=== PATIENT | male | born 1950 | race Caucasian/White ===

== ENCOUNTER 2019-01-25 11:27 | Observation (INO) | payer MEDICARE ==
[2019-01-25] MEDS ORDERED: Vancomycin 1GM/ Ns 250ML*** 1 GM/250 ML IVPB IV ONE (13:43)
[2019-01-25] MEDS ORDERED: Sodium Chloride 0.9% 1000 ML 1,000 ML IV SCH (13:45)
--- NOTE | 2019-01-25 13:51 | ERPHSYRPT ---
- History of Present Illness Time Seen by Provider: 01/25/19 13:10 Source: patient Exam Limitations: clinical condition Patient Subjective Stated Complaint: pt reports swelling, redness, drainage to the right great toe, states he has history of gout and infection off and on to this toe for approx 7 weeks.pt states toe will become infected he will get it to drain, clean it and dress it and it seems to heal. reports the infection keeps recurring. Triage Nursing Assessment: pt is aox3, pupils perrl, afebrile, resps easy and non labored, radial pulses strong and equal, cap refill < 3 seconds, pedal pulses strong equal bilat, pt skin pink warm dry. right great toe is red and swollen, open area noted to the lateral aspect, white drainage noted. pt denies pain. Physician History: PATIENT WITH A HISTORY OF GOUTY ARTHRITIS RIGHT GREAT TOE COMPLAINS OF REDNESS RIGHT GREAT TOE FOR 7 WEEKS WITH ONSET OF DRAINAGE X 2-3 DAYS. HAS ASSOCIATED CHILLS, DENIES FEVER, INJURY OR TRAUMA. Method of Injury: other (NONE) Occurred: other (WEEKS AGO) Quality: other (DENIES PAIN) Severity of Pain-Max: none Severity of Pain-Current: none Lower Extremities Pain: 1st toe: right Modifying Factors: Improves With: nothing Associated Symptoms: other (CHILLS) Allergies/Adverse Reactions: minocycline HCl [From Minocin] Allergy (Mild, Verified 01/25/19 13:22) nausea, confusion, dizzyness Skin Cleanser Combination No.4 [From Minocin] Allergy (Mild, Verified 01/25/19 13:22) nausea, confusion, dizzyness rifampin Allergy (Verified 01/25/19 13:22) nausea, dizzyness, confused Home Medications: Allopurinol 300 mg [Zyloprim 300 mg] 300 mg PO DAILY 05/04/13 [History] Alprazolam 1 mg [Xanax 1 mg] 1 mg PO HS PRN 05/04/13 [History] Aspirin EC 81 mg [Ecotrin 81 mg] 81 mg PO HS 05/04/13 [History] Lisinopril 10 mg [Zestril 10 MG] 40 mg PO BID 05/04/13 [History] Ascorbic Acid [Vitamin C] 3,000 mg PO DAILY 12/28/18 [History] Multivitamin W-Minerals/Lutein [Centrum Silver Tablet] 1 each PO DAILY 12/28/18 [History] [place]-3/Dha/Epa/Fish Oil [Fish Oil 1,000 mg Softgel] 1 each PO DAILY 12/28/18 [ History] Thiamine HCl [Vitamin B-1] 250 mg PO DAILY 12/28/18 [History] Hx Tetanus, Diphtheria Vaccination/Date Given: Yes Hx Influenza Vaccination/Date Given: No Hx Pneumococcal Vaccination/Date Given: No Immunizations Up to Date: Yes - Review of Systems Constitutional: No Fever, No Chills Eyes: No Symptoms Ears, Nose, & Throat: No Symptoms Respiratory: No Symptoms, No Cough, No Dyspnea Cardiac: No Chest Pain, No Edema, No Syncope Abdominal/Gastrointestinal: No Symptoms, No Abdominal Pain, No Nausea, No Vomiting, No Diarrhea Genitourinary Symptoms: No Dysuria Musculoskeletal: No Back Pain, No Neck Pain Skin: Cellulitis, Other (DRAINAGE RIGHT GREAT TOE), No Rash Neurological: No Dizziness, No Focal Weakness, No Sensory Changes Psychological: No Symptoms Endocrine: No Symptoms All Other Systems: Reviewed and Negative - Past Medical History Pertinent Past Medical History: Yes Neurological History: No Pertinent History ENT History: Cataracts Cardiac History: Hypertension Respiratory History: No Pertinent History Endocrine Medical History: No Pertinent History Musculoskeletal History: Arthritis, Fractures, Osteoarthritis GI Medical History: GERD History: No Pertinent History Psycho-Social History: Anxiety Male Reproductive Disorders: No Pertinent History Other Medical History: Hx of fractured ribs and right hand. Gout - Past Surgical History Past Surgical History: Yes Neuro Surgical History: No Pertinent History Cardiac: No Pertinent History Respiratory: No Pertinent History Gastrointestinal: No Pertinent History Genitourinary: Other Musculoskeletal: Orthopedic Surgery Male Surgical History: Vasectomy Other Surgical History: vasectomy, right knee arthroscopy, Right and left great toes. - Social History Smoking Status: Never smoker How long have you smoked: 10-15 year Exposure to second hand smoke: No Drug Use: none Patient Lives Alone: No - Nursing Vital Signs Nursing Vital Signs: Initial Vital Signs Temperature 99.0 F 01/25/19 13:04 Pulse Rate 85 01/25/19 13:04 Respiratory Rate 20 01/25/19 13:04 Blood Pressure 173/89 01/25/19 13:04 O2 Sat by Pulse Oximetry 96 01/25/19 13:04 Pain Scale Pain Intensity 0 - Physical Exam General Appearance: no apparent distress Neck Exam: non-tender, supple Cardiovascular/Respiratory Exam: chest non-tender, normal breath sounds, regular rate/rhythm, no respiratory distress Foot Exam: right foot: swelling (MARKED ERYTHEMA DORSUM RIGHT GREAT TOE, ULCERATION 1CM X 1CM RADIAL ASPECT WIT SEROSANGUINOUS DRAINAGE, NONTENDER, CONFLUENT ERYTHEMA METATARSAL PHALNAGEAL JOINT TO TIP OF TIP OF TOE OVER DORSUM) Neuro/Tendon Exam: normal sensation, normal motor functions Mental Status Exam: oriented x 3 SpO2: 96 - Radiology Exams Right Foot X-ray Interpretation: Discussed w/ radiologist (GREAT TOE IP JOINT PERIARTICULAR EROSIONS WITH OVERHANGING OSTEOPHYTES AND SOFT TISSUE SWELLLING FAVORING GOUT) Ordered Tests: Active Orders 24 hr Category Date Time Status Wound Care STAT Care 01/25/19 13:42 Active FOOT (MINIMUM 3 VIEWS) Stat Exams 01/25/19 13:43 Completed BLOOD CULTURE Stat Lab 01/25/19 14:10 Received BMP Stat Lab 01/25/19 14:10 Completed CBC W DIFF Stat Lab 01/25/19 14:10 Completed PT INR [PROTIME WITH INR] Stat Lab 01/25/19 14:10 Completed Uric Acid Stat Lab 01/25/19 14:10 Completed Medication Summary Generic Name Dose Route Start Last Admin Trade Name Freq PRN Reason Stop Dose Admin Sodium Chloride 1,000 mls @ 100 mls/hr 01/25/19 13:45 Sodium Chloride 0.9% 1000 Ml IV 02/24/19 13:44 .Q10H GREGORIO Discontinued Medications Generic Name Dose Route Start Last Admin Trade Name Freq PRN Reason Stop Dose Admin Vancomycin HCl 1 gm in 250 mls @ 167 mls/hr 01/25/19 13:43 Vancomycin 1gm/ Ns 250ml IV 01/25/19 15:12 STAT ONE Lab/Rad Data: Laboratory Result Diagrams 01/25/19 14:10 01/25/19 14:10 Laboratory Results 01/25/19 01/25/19 01/25/19 Range/Units 14:10 14:10 14:10 WBC (4.0-10.5) K/mm3 RBC (4.1-5.6) M/mm3 Hgb (12.5-18.0) gm/dl Hct (42-50) % MCV (78-100) fl MCH (26-32) pg MCHC (32-36) g/dl RDW (11.5-14.0) % Plt Count (150-450) K/mm3 MPV (6-9.5) fl Gran % (36.0-66.0) % Eos # (Auto) (0-0.5) Absolute Lymphs (auto) (1.0-4.6) Absolute Monos (auto) (0.0-1.3) Lymphocytes % (24.0-44.0) % Monocytes % (0.0-12.0) % Eosinophils % (0.00-5.0) % Basophils % (0.0-0.4) % Absolute Granulocytes (1.4-6.9) Basophils # (0-0.4) PT 14.3 H (8.83-12.87) SECONDS INR 1.23 (0.8-3.0) Sodium 140 (137-145) mmol/L Potassium 3.7 (3.5-5.1) mmol/L Chloride 103 (98-107) mmol/L Carbon Dioxide 28 (22-30) mmol/L Anion Gap 13.2 (5-15) MEQ/L BUN 14 (9-20) mg/dL Creatinine 0.99 (0.66-1.25) mg/dL Estimated GFR > 60.0 ML/MIN Glucose 96 (74-106) mg/dL Uric Acid 5.9 (3.5-7.2) mg/dL Calcium 9.6 (8.4-10.2) mg/dL Slides for Path Review 01/25/19 Range/Units 14:10 WBC 5.2 (4.0-10.5) K/mm3 RBC 4.00 L (4.1-5.6) M/mm3 Hgb 14.0 (12.5-18.0) gm/dl Hct 40.5 L (42-50) % MCV 101.3 H (78-100) fl MCH 35.0 H (26-32) pg MCHC 34.6 (32-36) g/dl RDW 13.2 (11.5-14.0) % Plt Count 168 (150-450) K/mm3 MPV 10.7 H (6-9.5) fl Gran % 75.9 H (36.0-66.0) % Eos # (Auto) 0.05 (0-0.5) Absolute Lymphs (auto) 0.52 L (1.0-4.6) Absolute Monos (auto) 0.66 (0.0-1.3) Lymphocytes % 10.0 L (24.0-44.0) % Monocytes % 12.7 H (0.0-12.0) % Eosinophils % 1.0 (0.00-5.0) % Basophils % 0.4 (0.0-0.4) % Absolute Granulocytes 3.96 (1.4-6.9) Basophils # 0.02 (0-0.4) PT (8.83-12.87) SECONDS INR (0.8-3.0) Sodium (137-145) mmol/L Potassium (3.5-5.1) mmol/L Chloride (98-107) mmol/L Carbon Dioxide (22-30) mmol/L Anion Gap (5-15) MEQ/L BUN (9-20) mg/dL Creatinine (0.66-1.25) mg/dL Estimated GFR ML/MIN Glucose (74-106) mg/dL Uric Acid (3.5-7.2) mg/dL Calcium (8.4-10.2) mg/dL Slides for Path Review YES - Progress Progress Note: 01/25/19 13:51 IV NORMAL SALINE 100ML /HR, AFTER 2 SETS OF BLOOD CULTURE X 2, VANCOMYCIN 1GM IVPB Discussed with Dr.: Quick (DISCUSSED WITH DR QUICK AT 1520 FOR OBSERVATION) - Departure Time of Disposition: 15:50 Departure Disposition: Observation Clinical Impression: CELLULITIS RIGHT GREAT TOE Condition: Stable Critical Care Time: No Referrals: DOCTOR,NO FAMILY [Primary Care Provider] -
--- NOTE | 2019-01-25 14:06 | XRAY ---
Indication: Great toe infection. Gout. Comparison: None 3 nonweightbearing views of the right foot demonstrates great toe IP joint periarticular erosions with overhanging osteophytes and soft tissue swelling favoring gout. Elsewhere mild 1st MTP degenerative changes, tiny posterior heel spur, tiny 5th metatarsal spur, and prominent navicular accessory ossicle.
[2019-01-25 14:24] LABS: BASOPHIL % 0.4 % (0.0-0.4); Basophil (Absolute #) 0.02 (0-0.4); Eosinophil (Absolute #) 0.05 (0-0.5); Granulocyte Absolute (ANC) 3.96 (1.4-6.9); Granulocytes % 75.9 % (36.0-66.0); Hematocrit 40.5 % (42-50); INR 1.23 (0.8-3.0); Lymphocyte (Absolute #) 0.52 (1.0-4.6); Mean Cell Volume 101.3 fl (78-100); Mean Corpuscular Hgb Concent. 34.6 g/dl (32-36); Mean Platelet Volume 10.7 fl (6-9.5); Monocyte (Absolute #) 0.66 (0.0-1.3); Monocytes % 12.7 % (0.0-12.0); PROTIME 14.3 SECONDS (8.83-12.87); Platelet Count 168 K/mm3 (150-450); Red Cell Distribution Width 13.2 % (11.5-14.0); White Blood Count 5.2 K/mm3 (4.0-10.5)
[2019-01-25 14:28] LABS: ANION GAP 13.2 MEQ/L (5-15); BLOOD UREA NITROGEN 14 mg/dL (9-20); CHLORIDE 103 mmol/L (98-107); Calcium 9.6 mg/dL (8.4-10.2); Carbon Dioxide 28 mmol/L (22-30); Creatinine 1 0.99 mg/dL (0.66-1.25); Glucose 96 mg/dL (74-106); Potassium 3.7 mmol/L (3.5-5.1); SODIUM 140 mmol/L (137-145)
[2019-01-25 15:27] LABS: Slide Review 1 YES
[2019-01-25] MEDS ORDERED: Sodium Chloride 0.9% 1000 ML 1,000 ML ONE (15:31)
[2019-01-25] MEDS ORDERED: Vancomycin 1GM/ Ns 250ML*** 250 ML IV ONE (15:32)
[2019-01-25] MEDS: Sodium Chloride 0.9% 1000 ML 1,000 ML IV SCH (15:47)
[2019-01-25] MEDS ORDERED: VANCOCIN 1 GM VIAL*** 1 GM in Sodium Chloride 0.9% 250 ML 250 ML IV SCH (16:43)
[2019-01-25] MEDS ORDERED: Zofran 4 MG/2 ML VIAL IV PRN (16:43)
[2019-01-25] MEDS ORDERED: NORCO 5/325 MG PO PRN (16:43)
[2019-01-25] MEDS ORDERED: XANAX 1 MG PO PRN (18:51)
[2019-01-25 19:34] LABS: INFLUENZA A POSITIVE (NEGATIVE); INFLUENZA B NEGATIVE (NEGATIVE); RESPIRATORY SYNCTIAL VIRUS NEGATIVE (Negative)
[2019-01-25] MEDS ORDERED: APRESOLINE 20 MG/ML INJ IV PRN (19:38)
[2019-01-25] MEDS: TYLENOL 325 MG PO PRN (19:51)
--- NOTE | 2019-01-25 20:17 | PCM.HP ---
History of Present Illness - Chief Complaint Chief Complaint: CELLULITIS History of Present Illness: Mr.LIGHTHIZER DUKE is a 68 year old male pt of Dr. Dudley (has seen Dr. Prudence Koroma and Kezia llanes), also a [facility], with PMHx Hep C (treated with sustained viral response), gout, HTN, and anxiety who was admitted through ER with cellulitis of the R great toe. He was c/o 2 months of R toe pain and increased swelling - has been seeing Dr. Nava for treatment. He also has hx issues wiht L toe, btoh he thinks due to gout. He was treated with IV antibiotics previously with improvement but worse over the past 2 mo. Pt also c/o cough which came on yesterday and temp to 100. He asked to be tested for influenza and in fact is positive for flu A. XR foot showed periarticular erosoins favoring gout. His WBC are 5.2. uric acid 5.9. - Review of Systems Constitutional: Fever Respiratory: Cough Musculoskeletal: Joint Redness, Joint Pain, Joint Swelling Psychological: No Anxiety, No Depression, No Suicidal Ideations All Other Systems: Reviewed and Negative Medications & Allergies Home Medications: Home Medication List Allopurinol 300 mg [Zyloprim 300 mg] 300 mg PO DAILY 05/04/13 [History Confirmed 01/25/19] Alprazolam 1 mg [Xanax 1 mg] 1 mg PO HS PRN 05/04/13 [History Confirmed ] Lisinopril 10 mg [Zestril 10 MG] 40 mg PO BID 05/04/13 [History Confirmed 01/25/19] Ascorbic Acid [Vitamin C] 3,000 mg PO DAILY 12/28/18 [History Confirmed 01/25/19 ] [place]-3/Dha/Epa/Fish Oil [Fish Oil 1,000 mg Softgel] 1 each PO DAILY 12/28/18 [ History Confirmed 01/25/19] Thiamine HCl [Vitamin B-1] 250 mg PO DAILY 12/28/18 [History Confirmed 01/25/19] Cranberry Conc/Ascorbic Acid [Cranberry 6,000 mg Softgel] 1 each PO DAILY [History Confirmed 01/25/19] Allergies/Adverse Reactions: Allergies Allergy/AdvReac Type Severity Reaction Status Date / Time minocycline HCl Allergy Mild nausea, Verified 01/25/19 13:22 [From Minocin] confusion, dizzyness Skin Cleanser Combination Allergy Mild nausea, Verified 01/25/19 13:22 No.4 confusion, [From Minocin] dizzyness rifampin Allergy nausea, Verified 01/25/19 13:22 dizzyness, confused - Past Medical History Past Medical History: Yes Neurological History: No Pertinent History ENT History: Cataracts Cardiac History: Hypertension Respiratory History: No Pertinent History Endocrine Medical History: No Pertinent History Musculoskelatal History: Arthritis, Fractures, Osteoarthritis GI Medical History: GERD History: No Pertinent History Pyscho-Social History: Anxiety Male Reproductive Disorders: No Pertinent History Comment: Hx of fractured ribs and right hand. Gout - Past Surgical History Past Surgical History: Yes Neuro Surgical History: No Pertinent History Cardiac History: No Pertinent History Respiratory Surgery: No Pertinent History GI Surgical History: No Pertinent History Genitourinary Surgical Hx: Other Musculskeletal Surgical Hx: Orthopedic Surgery Male Surgical History: Vasectomy Other Surgical History: vasectomy, right knee arthroscopy, Right and left great toes. - Social History Smoking Status: Former smoker How long have you smoked: 10-15 year Exposure to second hand smoke: No Alcohol: None Drug Use: none - Physical Exam Vital Signs: Vital Signs - 24 hr Temp Pulse Resp BP Pulse Ox 01/25/19 16:45 98.8 F 85 20 179/92 85 L 01/25/19 16:37 98.8 F 85 20 179/92 85 L 01/25/19 15:51 82 20 168/93 98 01/25/19 15:36 96 01/25/19 13:04 99.0 F 85 20 173/89 96 General Appearance: no apparent distress, alert Neurologic Exam: oriented x 3, cooperative Eye Exam: eyes nml inspection Ears, Nose, Throat Exam: moist mucous membranes Neck Exam: normal inspection, non-tender, No lymphadenopathy Respiratory Exam: normal breath sounds, lungs clear, wheezing (slight), No crackles/rales, No rhonchi Cardiovascular Exam: regular rate/rhythm, normal heart sounds, No murmur Gastrointestinal/Abdomen Exam: soft, normal bowel sounds, No tenderness, No distention, No mass, No guarding, No rebound Back Exam: normal inspection, No rash Extremity Exam: other (R great toe is enlarged, particularly in medial aspect, very firm. There is an ulcerated open wound on the anterior (dorsal) medial aspect, approx 1.5 cm.) Results - Labs Lab/Micro Results: Lab Results-Last 24 Hours 01/25/19 01/25/19 01/25/19 Range/Units 14:10 14:10 14:10 WBC 5.2 (4.0-10.5) K/mm3 RBC 4.00 L (4.1-5.6) M/mm3 Hgb 14.0 (12.5-18.0) gm/dl Hct 40.5 L (42-50) % MCV 101.3 H (78-100) fl MCH 35.0 H (26-32) pg MCHC 34.6 (32-36) g/dl RDW 13.2 (11.5-14.0) % Plt Count 168 (150-450) K/mm3 MPV 10.7 H (6-9.5) fl Gran % 75.9 H (36.0-66.0) % Eos # (Auto) 0.05 (0-0.5) Absolute Lymphs (auto) 0.52 L (1.0-4.6) Absolute Monos (auto) 0.66 (0.0-1.3) Lymphocytes % 10.0 L (24.0-44.0) % Monocytes % 12.7 H (0.0-12.0) % Eosinophils % 1.0 (0.00-5.0) % Basophils % 0.4 (0.0-0.4) % Absolute Granulocytes 3.96 (1.4-6.9) Basophils # 0.02 (0-0.4) PT 14.3 H (8.83-12.87) SECONDS INR 1.23 (0.8-3.0) Sodium 140 (137-145) mmol/L Potassium 3.7 (3.5-5.1) mmol/L Chloride 103 (98-107) mmol/L Carbon Dioxide 28 (22-30) mmol/L Anion Gap 13.2 (5-15) MEQ/L BUN 14 (9-20) mg/dL Creatinine 0.99 (0.66-1.25) mg/dL Estimated GFR > 60.0 ML/MIN Glucose 96 (74-106) mg/dL Uric Acid (3.5-7.2) mg/dL Calcium 9.6 (8.4-10.2) mg/dL Influenza Type A Ag (NEGATIVE) Influenza Type B Ag (NEGATIVE) RSV (PCR) (Negative) Slides for Path Review YES 01/25/19 01/25/19 Range/Units 14:10 18:30 WBC (4.0-10.5) K/mm3 RBC (4.1-5.6) M/mm3 Hgb (12.5-18.0) gm/dl Hct (42-50) % MCV (78-100) fl MCH (26-32) pg MCHC (32-36) g/dl RDW (11.5-14.0) % Plt Count (150-450) K/mm3 MPV (6-9.5) fl Gran % (36.0-66.0) % Eos # (Auto) (0-0.5) Absolute Lymphs (auto) (1.0-4.6) Absolute Monos (auto) (0.0-1.3) Lymphocytes % (24.0-44.0) % Monocytes % (0.0-12.0) % Eosinophils % (0.00-5.0) % Basophils % (0.0-0.4) % Absolute Granulocytes (1.4-6.9) Basophils # (0-0.4) PT (8.83-12.87) SECONDS INR (0.8-3.0) Sodium (137-145) mmol/L Potassium (3.5-5.1) mmol/L Chloride (98-107) mmol/L Carbon Dioxide (22-30) mmol/L Anion Gap (5-15) MEQ/L BUN (9-20) mg/dL Creatinine (0.66-1.25) mg/dL Estimated GFR ML/MIN Glucose (74-106) mg/dL Uric Acid 5.9 (3.5-7.2) mg/dL Calcium (8.4-10.2) mg/dL Influenza Type A Ag POSITIVE (NEGATIVE) Influenza Type B Ag NEGATIVE (NEGATIVE) RSV (PCR) NEGATIVE (Negative) Slides for Path Review - Radiology Impressions Radiology Exams & Impressions: Radiology Procedures Category Date Time Status FOOT (MINIMUM 3 VIEWS) Stat Exams 01/25/19 13:43 Completed Assessment/Plan (1) Cellulitis Current Visit: Yes Status: Acute Qualifiers: Site of cellulitis: extremity Site of cellulitis of extremity: toe Laterality: right Qualified Code(s): L03.031 - Cellulitis of right toe Assessment & Plan: on IV vancomycin Code(s): L03.90 - CELLULITIS, UNSPECIFIED (2) Influenza A Current Visit: Yes Status: Acute Assessment & Plan: started tamiflu. Code(s): J10.1 - FLU DUE TO OTH IDENT INFLUENZA VIRUS W OTH RESP MANIFEST (3) Gout Current Visit: Yes Status: Chronic Qualifiers: Gout site: unspecified site Gout etiology: unspecified cause Chronicity: chronic Presence of tophus: with tophus Qualified Code(s): M1A.9XX1 - Chronic gout, unspecified, with tophus (tophi) Assessment & Plan: uric acid nl currently. Code(s): M10.9 - GOUT, UNSPECIFIED
[2019-01-25] MEDS ORDERED: PROVENTIL 2.5 MG/3 ML NEB IH PRN (20:21)
[2019-01-25] MEDS ORDERED: Zestril 10 MG PO SCH (22:00)
[2019-01-25] MEDS: VANCOCIN 1 GM VIAL*** 1 GM in Sodium Chloride 0.9% 250 ML 250 ML IV SCH (22:33)
[2019-01-25] MEDS: Tamiflu 75MG Capsule PO SCH (22:34)
[2019-01-25] MEDS: Zestril 20 MG PO SCH (22:34)
--- NOTE | 2019-01-26 08:46 | PCM.NOTE ---
Date and Time: 01/26/19 0844 Subjective Assessment: Pt is feeling better, toe feels better. Did have temp to 100.3 early this morning. Cough is better. - Review of Systems Constitutional: Fever Respiratory: Cough Objective Exam General Appearance: no apparent distress, alert Neurologic Exam: oriented x 3, cooperative Skin Exam: other (R great toe decreased erythema (mild), open defect no exudate , appears slightly smaller. induration remains.) Ears, Nose, Throat Exam: moist mucous membranes Neck Exam: normal inspection Respiratory Exam: normal breath sounds, wheezing (sl exp wheeze, scattered), No crackles/rales, No rhonchi Cardiovascular Exam: regular rate/rhythm, normal heart sounds, No murmur OBJECTIVE DATA Vital Signs: Vital Signs - 24 hr Temp Pulse Resp BP Pulse Ox 01/26/19 07:59 96 01/26/19 07:00 98.2 F 69 18 139/71 94 L 01/26/19 03:34 100.3 F 72 18 142/84 94 L 01/26/19 00:00 98.2 F 73 20 143/71 95 01/25/19 21:12 84 18 95 01/25/19 20:00 100 F 77 20 161/87 93 L 01/25/19 16:45 98.8 F 85 20 179/92 85 L 01/25/19 16:37 98.8 F 85 20 179/92 85 L 01/25/19 15:51 82 20 168/93 98 01/25/19 15:36 96 01/25/19 13:04 99.0 F 85 20 173/89 96 Pain Assessment - Last Documented Pain Intensity 0 Pain Scale Used [facility] Intake and Output: Intake & Output 01/23/19 01/24/19 01/25/19 01/26/19 11:59 11:59 11:59 11:59 Intake Total 1696 Balance 1696 Weight 72.575 kg Lab Results: Lab Results-Last 24 Hours 01/25/19 01/25/19 01/25/19 Range/Units 14:10 14:10 14:10 WBC 5.2 (4.0-10.5) K/mm3 RBC 4.00 L (4.1-5.6) M/mm3 Hgb 14.0 (12.5-18.0) gm/dl Hct 40.5 L (42-50) % MCV 101.3 H (78-100) fl MCH 35.0 H (26-32) pg MCHC 34.6 (32-36) g/dl RDW 13.2 (11.5-14.0) % Plt Count 168 (150-450) K/mm3 MPV 10.7 H (6-9.5) fl Gran % 75.9 H (36.0-66.0) % Eos # (Auto) 0.05 (0-0.5) Absolute Lymphs (auto) 0.52 L (1.0-4.6) Absolute Monos (auto) 0.66 (0.0-1.3) Lymphocytes % 10.0 L (24.0-44.0) % Monocytes % 12.7 H (0.0-12.0) % Eosinophils % 1.0 (0.00-5.0) % Basophils % 0.4 (0.0-0.4) % Absolute Granulocytes 3.96 (1.4-6.9) Basophils # 0.02 (0-0.4) PT 14.3 H (8.83-12.87) SECONDS INR 1.23 (0.8-3.0) Sodium 140 (137-145) mmol/L Potassium 3.7 (3.5-5.1) mmol/L Chloride 103 (98-107) mmol/L Carbon Dioxide 28 (22-30) mmol/L Anion Gap 13.2 (5-15) MEQ/L BUN 14 (9-20) mg/dL Creatinine 0.99 (0.66-1.25) mg/dL Estimated GFR > 60.0 ML/MIN Glucose 96 (74-106) mg/dL Uric Acid (3.5-7.2) mg/dL Calcium 9.6 (8.4-10.2) mg/dL Influenza Type A Ag (NEGATIVE) Influenza Type B Ag (NEGATIVE) RSV (PCR) (Negative) Slides for Path Review YES 01/25/19 01/25/19 Range/Units 14:10 18:30 WBC (4.0-10.5) K/mm3 RBC (4.1-5.6) M/mm3 Hgb (12.5-18.0) gm/dl Hct (42-50) % MCV (78-100) fl MCH (26-32) pg MCHC (32-36) g/dl RDW (11.5-14.0) % Plt Count (150-450) K/mm3 MPV (6-9.5) fl Gran % (36.0-66.0) % Eos # (Auto) (0-0.5) Absolute Lymphs (auto) (1.0-4.6) Absolute Monos (auto) (0.0-1.3) Lymphocytes % (24.0-44.0) % Monocytes % (0.0-12.0) % Eosinophils % (0.00-5.0) % Basophils % (0.0-0.4) % Absolute Granulocytes (1.4-6.9) Basophils # (0-0.4) PT (8.83-12.87) SECONDS INR (0.8-3.0) Sodium (137-145) mmol/L Potassium (3.5-5.1) mmol/L Chloride (98-107) mmol/L Carbon Dioxide (22-30) mmol/L Anion Gap (5-15) MEQ/L BUN (9-20) mg/dL Creatinine (0.66-1.25) mg/dL Estimated GFR ML/MIN Glucose (74-106) mg/dL Uric Acid 5.9 (3.5-7.2) mg/dL Calcium (8.4-10.2) mg/dL Influenza Type A Ag POSITIVE (NEGATIVE) Influenza Type B Ag NEGATIVE (NEGATIVE) RSV (PCR) NEGATIVE (Negative) Slides for Path Review Radiology Exams: Radiology Procedures Category Date Time Status FOOT (MINIMUM 3 VIEWS) Stat Exams 01/25/19 13:43 Completed Assessment/Plan (1) Cellulitis Current Visit: Yes Status: Acute Qualifiers: Site of cellulitis: extremity Site of cellulitis of extremity: toe Laterality: right Qualified Code(s): L03.031 - Cellulitis of right toe Assessment & Plan: appears better on IV vancomycin. Did have elevated temp, however with flu A this confounds the finding. Since the toe is feeling and looking better, will stay with IV vancomycin for now. Code(s): L03.90 - CELLULITIS, UNSPECIFIED (2) Influenza A Current Visit: Yes Status: Acute Assessment & Plan: on tamiflu Code(s): J10.1 - FLU DUE TO OTH IDENT INFLUENZA VIRUS W OTH RESP MANIFEST (3) Gout Current Visit: Yes Status: Chronic Qualifiers: Gout site: unspecified site Gout etiology: unspecified cause Chronicity: chronic Presence of tophus: with tophus Qualified Code(s): M1A.9XX1 - Chronic gout, unspecified, with tophus (tophi) Code(s): M10.9 - GOUT, UNSPECIFIED
[2019-01-26] MEDS ORDERED: Zestril 10 MG PO SCH (10:00)
[2019-01-26] MEDS: ECOTRIN 81 MG PO SCH (11:26)
[2019-01-26] MEDS: TYLENOL 325 MG PO PRN (11:28)
[2019-01-26] MEDS: Tamiflu 75MG Capsule PO SCH ×2 (11:29→22:31)
[2019-01-26] MEDS: ZYLOPRIM 300 MG PO SCH (11:29)
[2019-01-26] MEDS: ENOXAPARIN SODIUM SQ SCH (11:29)
[2019-01-26] MEDS: Zestril 20 MG PO SCH ×2 (11:29→22:31)
[2019-01-26] MEDS: VANCOCIN 1 GM VIAL*** 1 GM in Sodium Chloride 0.9% 250 ML 250 ML IV SCH ×2 (11:31→22:26)
[2019-01-26] MEDS: Sodium Chloride 0.9% 1000 ML 1,000 ML IV SCH (13:46)
[2019-01-27 05:53] LABS: Basophil (Absolute #) 0 (0-0.4); Eosinophil (Absolute #) 0.06 (0-0.5); Granulocyte Absolute (ANC) 1.34 (1.4-6.9); Granulocytes % 44.8 % (36.0-66.0); Hematocrit 38.5 % (42-50); Hemoglobin 13.1 gm/dl (12.5-18.0); Lymphocyte (Absolute #) 1.05 (1.0-4.6); Lymphocytes % 35.1 % (24.0-44.0); Mean Cell Volume 100.3 fl (78-100); Mean Corpuscular Hemoglobin 34.1 pg (26-32); Mean Platelet Volume 10.7 fl (6-9.5); Monocyte (Absolute #) 0.54 (0.0-1.3); Monocytes % 18.1 % (0.0-12.0); Platelet Count 133 K/mm3 (150-450); Red Blood Count 3.84 M/mm3 (4.1-5.6); Red Cell Distribution Width 13.2 % (11.5-14.0)
[2019-01-27 06:04] LABS: ANION GAP 10.7 MEQ/L (5-15); BLOOD UREA NITROGEN 14 mg/dL (9-20); CHLORIDE 103 mmol/L (98-107); Carbon Dioxide 27 mmol/L (22-30); Creatinine 1 0.88 mg/dL (0.66-1.25); Glucose 88 mg/dL (74-106); Potassium 3.7 mmol/L (3.5-5.1); SODIUM 136 mmol/L (137-145)
--- NOTE | 2019-01-27 08:47 | PCM.NOTE ---
Date and Time: 01/27/19 0844 Subjective Assessment: He had a temp to 100.3 last night. Didn't sleep well. His toe is feeling better. His breathing seems to be subjectively better. Jsoe po, just decreased appetite. - Review of Systems Respiratory: Cough Skin: Cellulitis Objective Exam General Appearance: no apparent distress, alert Neurologic Exam: oriented x 3, cooperative Skin Exam: warm, dry, No rash Respiratory Exam: normal breath sounds, lungs clear, No crackles/rales, No rhonchi, No wheezing Cardiovascular Exam: regular rate/rhythm, normal heart sounds, No murmur Extremity Exam: other (RLE great toe with decreased erythema. ulcerated portion of toe without exudate, nttp.) OBJECTIVE DATA Vital Signs: Vital Signs - 24 hr Temp Pulse Resp BP Pulse Ox 01/27/19 05:00 99.8 F 65 18 134/75 96 01/27/19 00:27 100.2 F 63 18 175/97 95 01/26/19 21:36 98.4 F 70 17 175/98 97 01/26/19 21:14 86 19 96 01/26/19 15:00 98.3 F 73 18 165/89 96 01/26/19 11:00 98.2 F 75 18 130/75 94 L Pain Assessment - Last Documented Pain Intensity 7 Pain [facility] Intake and Output: Intake & Output 01/24/19 01/25/19 01/26/19 01/27/19 11:59 11:59 11:59 11:59 Intake Total 2076 3430 Output Total 300 Balance 2076 3130 Weight 72.575 kg Lab Results: Lab Results-Last 24 Hours 01/27/19 01/27/19 Range/Units 05:30 05:30 WBC 3.0 L (4.0-10.5) K/mm3 RBC 3.84 L (4.1-5.6) M/mm3 Hgb 13.1 (12.5-18.0) gm/dl Hct 38.5 L (42-50) % MCV 100.3 H (78-100) fl MCH 34.1 H (26-32) pg MCHC 34.0 (32-36) g/dl RDW 13.2 (11.5-14.0) % Plt Count 133 L (150-450) K/mm3 MPV 10.7 H (6-9.5) fl Gran % 44.8 (36.0-66.0) % Eos # (Auto) 0.06 (0-0.5) Absolute Lymphs (auto) 1.05 (1.0-4.6) Absolute Monos (auto) 0.54 (0.0-1.3) Lymphocytes % 35.1 (24.0-44.0) % Monocytes % 18.1 H (0.0-12.0) % Eosinophils % 2.0 (0.00-5.0) % Basophils % 0.0 (0.0-0.4) % Absolute Granulocytes 1.34 L (1.4-6.9) Basophils # 0 (0-0.4) Sodium 136 L (137-145) mmol/L Potassium 3.7 (3.5-5.1) mmol/L Chloride 103 (98-107) mmol/L Carbon Dioxide 27 (22-30) mmol/L Anion Gap 10.7 (5-15) MEQ/L BUN 14 (9-20) mg/dL Creatinine 0.88 (0.66-1.25) mg/dL Estimated GFR > 60.0 ML/MIN Glucose 88 (74-106) mg/dL Calcium 9.0 (8.4-10.2) mg/dL Radiology Exams: Radiology Procedures Category Date Time Status FOOT (MINIMUM 3 VIEWS) Stat Exams 01/25/19 13:43 Completed Assessment/Plan (1) Cellulitis Current Visit: Yes Status: Acute Qualifiers: Site of cellulitis: extremity Site of cellulitis of extremity: toe Laterality: right Qualified Code(s): L03.031 - Cellulitis of right toe Assessment & Plan: appears improved. On IV vancomycin day #3. I will discuss with Dr. Nava today given the chronic nature of his gouty arthritis in the toe. Code(s): L03.90 - CELLULITIS, UNSPECIFIED (2) Influenza A Current Visit: Yes Status: Acute Assessment & Plan: lung exam is improved. on tamiflu. Code(s): J10.1 - FLU DUE TO OTH IDENT INFLUENZA VIRUS W OTH RESP MANIFEST (3) Gout Current Visit: Yes Status: Chronic Qualifiers: Gout site: unspecified site Gout etiology: unspecified cause Chronicity: chronic Presence of tophus: with tophus Qualified Code(s): M1A.9XX1 - Chronic gout, unspecified, with tophus (tophi) Code(s): M10.9 - GOUT, UNSPECIFIED (4) HTN (hypertension) Current Visit: Yes Status: Acute Qualifiers: Hypertension type: essential hypertension Qualified Code(s): I10 - Essential (primary) hypertension Assessment & Plan: to clarify, his lisinopril is 40mg daily. will add norvasc. Code(s): I10 - ESSENTIAL (PRIMARY) HYPERTENSION
[2019-01-27] MEDS ORDERED: TROUGH DRUG LEVELS IJ ONE (09:30)
[2019-01-27] MEDS: ECOTRIN 81 MG PO SCH (09:33)
[2019-01-27] MEDS: Zestril 20 MG PO SCH (09:33)
[2019-01-27] MEDS: ENOXAPARIN SODIUM SQ SCH (09:33)
[2019-01-27] MEDS: Tamiflu 75MG Capsule PO SCH ×2 (09:33→21:22)
[2019-01-27] MEDS: ZYLOPRIM 300 MG PO SCH (09:33)
[2019-01-27] MEDS: VANCOCIN 1 GM VIAL*** 1 GM in Sodium Chloride 0.9% 250 ML 250 ML IV SCH ×2 (09:47→21:22)
[2019-01-27] MEDS: NORVASC 5 MG PO SCH (09:50)
[2019-01-27] MEDS: Sodium Chloride 0.9% 1000 ML 1,000 ML IV SCH (13:47)
[2019-01-27] MEDS ORDERED: XANAX 1 MG PO SCH (22:00)
[2019-01-28 06:19] LABS: BASOPHIL % 0.3 % (0.0-0.4); Basophil (Absolute #) 0.01 (0-0.4); Eosinophil % 5.8 % (0.00-5.0); Eosinophil (Absolute #) 0.17 (0-0.5); Granulocyte Absolute (ANC) 0.96 (1.4-6.9); Granulocytes % 32.6 % (36.0-66.0); Hematocrit 38.9 % (42-50); Hemoglobin 13.2 gm/dl (12.5-18.0); Lymphocyte (Absolute #) 1.39 (1.0-4.6); Lymphocytes % 47.1 % (24.0-44.0); Mean Cell Volume 100.3 fl (78-100); Mean Corpuscular Hgb Concent. 33.9 g/dl (32-36); Mean Platelet Volume 10.4 fl (6-9.5); Monocyte (Absolute #) 0.42 (0.0-1.3); Monocytes % 14.2 % (0.0-12.0); Platelet Count 143 K/mm3 (150-450); Red Blood Count 3.88 M/mm3 (4.1-5.6); Red Cell Distribution Width 13.2 % (11.5-14.0)
[2019-01-28 06:31] LABS: BLOOD UREA NITROGEN 12 mg/dL (9-20); CHLORIDE 104 mmol/L (98-107); Calcium 8.9 mg/dL (8.4-10.2); Carbon Dioxide 30 mmol/L (22-30); Creatinine 1 0.99 mg/dL (0.66-1.25); Glucose 101 mg/dL (74-106); Potassium 3.8 mmol/L (3.5-5.1); SODIUM 140 mmol/L (137-145)
[2019-01-28 07:58] LABS: Slide Review 1 YES
[2019-01-28] MEDS: ZYLOPRIM 300 MG PO SCH (09:00)
[2019-01-28] MEDS: Zestril 20 MG PO SCH (09:00)
[2019-01-28] MEDS: NORVASC 5 MG PO SCH (09:00)
[2019-01-28] MEDS: Tamiflu 75MG Capsule PO SCH (09:00)
[2019-01-28] MEDS: ECOTRIN 81 MG PO SCH (09:00)
[2019-01-28] MEDS: ENOXAPARIN SODIUM SQ SCH (09:00)
[2019-01-28] MEDS: VANCOCIN 1 GM VIAL*** 1 GM in Sodium Chloride 0.9% 250 ML 250 ML IV SCH (09:31)
--- NOTE | 2019-01-28 12:30 | PCM.DS ---
Discharge Summary Date of Admission: 01/25/19 16:25 Admitting Physician: LAKISHA JOYA Primary Care Provider: JACINTO DUDLEY Allergies Allergies minocycline HCl [From Minocin] Allergy (Mild, Verified 01/25/19 13:22) nausea, confusion, dizzyness Skin Cleanser Combination No.4 [From Minocin] Allergy (Mild, Verified 01/25/19 13:22) nausea, confusion, dizzyness rifampin Allergy (Verified 01/25/19 13:22) nausea, dizzyness, confused Hospital Summary - Hospital Course Hospital Course: Ptis a 68 yo male pt of Dr. Dudley with extensive hx of gout who was admitted through the ER with cellulitis of the R great toe. Was started on and finished 4d of IV vancomycin. uric acid normal. He was also found to have influenza A. Foot xr neg for fx; had periarticular erosions with overhanging osteophytes typical of gout. He felt better after starting on IV vancomycin. Tolerating po well. Will be sent home on po doxycycline to finish 10d total antibiotic. I discussed his admission with Dr. Nava yesterday, who would like to start the patient on a new infusion. He will set this up with Dr. Randall. Pt's WBC decreased to 3.0 and his platelets to 143 during his stay. Will recheck CBC next week. - Vitals & Intake/Output Vital Signs: Vital Signs Temperature 97.9 F 01/28/19 07:00 Pulse Rate 62 01/28/19 11:34 Respiratory Rate 18 01/28/19 11:34 Blood Pressure 104/57 01/28/19 07:00 O2 Sat by Pulse Oximetry 95 01/28/19 11:35 Intake & Output: Intake & Output 01/25/19 01/26/19 01/27/19 01/28/19 11:59 11:59 11:59 11:59 Intake Total 2076 3910 3872 Output Total 300 Balance 2076 3610 3872 Weight 72.575 kg - Lab Result Diagrams: 01/28/19 05:57 01/28/19 05:57 Lab Results-Last 24 Hrs: Lab Results-Last 24 Hours 01/28/19 01/28/19 Range/Units 05:57 05:57 WBC 3.0 L (4.0-10.5) K/mm3 RBC 3.88 L (4.1-5.6) M/mm3 Hgb 13.2 (12.5-18.0) gm/dl Hct 38.9 L (42-50) % MCV 100.3 H (78-100) fl MCH 34.0 H (26-32) pg MCHC 33.9 (32-36) g/dl RDW 13.2 (11.5-14.0) % Plt Count 143 L (150-450) K/mm3 MPV 10.4 H (6-9.5) fl Gran % 32.6 L (36.0-66.0) % Eos # (Auto) 0.17 (0-0.5) Absolute Lymphs (auto) 1.39 (1.0-4.6) Absolute Monos (auto) 0.42 (0.0-1.3) Lymphocytes % 47.1 H (24.0-44.0) % Monocytes % 14.2 H (0.0-12.0) % Eosinophils % 5.8 H (0.00-5.0) % Basophils % 0.3 (0.0-0.4) % Absolute Granulocytes 0.96 L (1.4-6.9) Basophils # 0.01 (0-0.4) Sodium 140 (137-145) mmol/L Potassium 3.8 (3.5-5.1) mmol/L Chloride 104 (98-107) mmol/L Carbon Dioxide 30 (22-30) mmol/L Anion Gap 10.0 (5-15) MEQ/L BUN 12 (9-20) mg/dL Creatinine 0.99 (0.66-1.25) mg/dL Estimated GFR > 60.0 ML/MIN Glucose 101 (74-106) mg/dL Calcium 8.9 (8.4-10.2) mg/dL Slides for Path Review YES Micro Results-Entire Visit: Microbiology 01/25/19 14:10 Blood Culture - Preliminary Blood NO GROWTH TO DATE 01/25/19 14:10 Blood Culture - Preliminary Blood NO GROWTH TO DATE - Procedures and Test Procedures and Tests throughout Hospitalization: Therapy Orders & Screens 01/25/19 21:12 neb [Respiratory Nebulizer] PRN Comment: Diagnosis: CELLULITIS 01/25/19 21:13 Respiratory Therapy Assessment DAILY Comment: Diagnosis: CELLULITIS Discharge Exam General Appearance: no apparent distress, other Neurologic Exam: alert, oriented x 3 Skin Exam: normal color, warm, dry, No rash Eye Exam: eyes nml inspection Ears, Nose, Throat Exam: moist mucous membranes Respiratory Exam: normal breath sounds, lungs clear, No crackles/rales, No rhonchi, No wheezing Cardiovascular Exam: regular rate/rhythm, normal heart sounds, No murmur Extremity Exam: other (R great toe enlarged, no erythema, no exudate, defect healing) Back Exam: normal inspection, No rash Final Diagnosis/Problem List - Final Discharge Diagnosis/Problem (1) Cellulitis Current Visit: Yes Status: Acute Assessment & Plan: much improved. Finished 4d of IV vancomycin. Will send pt home on doxycycline. Code(s): L03.90 - CELLULITIS, UNSPECIFIED (2) Influenza A Current Visit: Yes Status: Acute Assessment & Plan: finish Tamiflu Code(s): J10.1 - FLU DUE TO OTH IDENT INFLUENZA VIRUS W OTH RESP MANIFEST (3) Gout Current Visit: Yes Status: Chronic Assessment & Plan: F/u with Dr. Nava next week. F/u with Dr. Randall (they are contacting patient). Code(s): M10.9 - GOUT, UNSPECIFIED (4) HTN (hypertension) Current Visit: Yes Status: Chronic Assessment & Plan: Added po norvasc to regimen. Code(s): I10 - ESSENTIAL (PRIMARY) HYPERTENSION (5) Leukopenia Current Visit: Yes Status: Acute Assessment & Plan: recheck cbc next week. Code(s): D72.819 - DECREASED WHITE BLOOD CELL COUNT, UNSPECIFIED - Discharge Disposition: Home, Self-Care Condition: Good Prescriptions: New Amoxicillin/Potassium Clav [Augmentin 875-125 Tablet] 875 mg PO BID #6 tablet Amlodipine Besylate 5 mg [Norvasc 5 mg] 5 mg PO DAILY #30 tablet Oseltamivir 75 mg [Tamiflu 75MG Capsule] 75 mg PO BID #3 cap Continue Lisinopril 10 mg [Zestril 10 MG] 40 mg PO BID No Action Alprazolam 1 mg [Xanax 1 mg] 1 mg PO HS PRN PRN Reason: Anxiety Allopurinol 300 mg [Zyloprim 300 mg] 300 mg PO DAILY Thiamine HCl [Vitamin B-1] 250 mg PO DAILY [place]-3/Dha/Epa/Fish Oil [Fish Oil 1,000 mg Softgel] 1 each PO DAILY Ascorbic Acid [Vitamin C] 3,000 mg PO DAILY Cranberry Conc/Ascorbic Acid [Cranberry 6,000 mg Softgel] 1 each PO DAILY Follow up with: JACINTO DUDLEY MD [Primary Care Provider] - 02/04/19 1:45 pm KLAUS NAVA [PODIATRY STAFF] - 02/03/19 9:15 am
[2019-01-28 15:51] VITALS: BP 143/77; PULSE 74; O2SAT 97
== END 2019-01-28 16:05 | disposition home or self-care (01) ==
LOC: ED 11:27 → MED SURG 16:25
PROVIDERS: ADMIT Family Medicine; ATTEND Family Medicine
DX: L03.031 Cellulitis of right toe (principal); J10.1 Influenza due to other identified influenza virus with other respiratory manifestations; M10.9 Gout, unspecified; I10 Essential (primary) hypertension; D72.819 Decreased white blood cell count, unspecified; F41.9 Anxiety disorder, unspecified; Z79.899 Other long term (current) drug therapy
CPT/HCPCS: 36415; 73630; 80048; 80202; 84550; 85025; 85610; 87040; 87631; 94760; 96360; 96365; 99285; G0378; J1650; J3370; A9270-GY

== ENCOUNTER 2019-08-15 23:19 | Emergency (ER) | payer MEDICARE ==
[2019-08-15 23:47] VITALS: PULSE 86; O2SAT 96
--- NOTE | 2019-08-16 00:06 | ERPHSYRPT ---
- History of Present Illness Time Seen by Provider: 08/16/19 00:00 Source: patient Exam Limitations: no limitations Patient Subjective Stated Complaint: PT states two days ago began having redness , pain, and swelling to left foot. Pt has history of gout and states it is same pain. Pt unable to walk due to pain. Triage Nursing Assessment: Pt left foot with redness and swelling, primarily to medial side of foot from great toe to ankle. Cap refill <3 sec. Pedal pulses present. Physician History: 69 y/o white male with h/o gout on allopurinol. approx 2 to 3 days ago, pt noticed his classic gout onset of his left foot. pain is now constant. pt denies fever. Method of Injury: other (no injru) Occurred: days ago (2 to 3 days ago) Quality: constant, aching, throbbing Severity of Pain-Max: moderate Severity of Pain-Current: moderate Lower Extremities Pain: foot: left Modifying Factors: Improves With: movement Associated Symptoms: other (pain with weight bearing) Allergies/Adverse Reactions: minocycline HCl [From Minocin] Allergy (Mild, Verified 08/15/19 23:48) nausea, confusion, dizzyness Skin Cleanser Combination No.4 [From Minocin] Allergy (Mild, Verified 08/15/19 23:48) nausea, confusion, dizzyness rifampin Allergy (Verified 08/15/19 23:48) nausea, dizzyness, confused Home Medications: Allopurinol 300 mg [Zyloprim 300 mg] 400 mg PO DAILY 05/04/13 [History] Alprazolam 1 mg [Xanax 1 mg] 1 mg PO HS PRN 05/04/13 [History] Lisinopril 10 mg [Zestril 10 MG] 40 mg PO DAILY 05/04/13 [History] Ascorbic Acid [Vitamin C] 3,000 mg PO DAILY 12/28/18 [History] [place]-3/Dha/Epa/Fish Oil [Fish Oil 1,000 mg Softgel] 1 each PO DAILY 12/28/18 [ History] Thiamine HCl [Vitamin B-1] 250 mg PO DAILY 12/28/18 [History] Cranberry Conc/Ascorbic Acid [Cranberry 6,000 mg Softgel] 1 each PO DAILY 03/25/ 19 [History] Hx Tetanus, Diphtheria Vaccination/Date Given: No Hx Influenza Vaccination/Date Given: No Hx Pneumococcal Vaccination/Date Given: No - Review of Systems Constitutional: No Symptoms Eyes: No Symptoms Ears, Nose, & Throat: No Symptoms Respiratory: No Symptoms Cardiac: No Symptoms Abdominal/Gastrointestinal: No Symptoms Genitourinary Symptoms: No Symptoms Musculoskeletal: Joint Redness (left first toe with pain) Skin: No Symptoms Neurological: No Symptoms Psychological: No Symptoms Endocrine: No Symptoms Hematologic/Lymphatic: No Symptoms Immunological/Allergic: No Symptoms All Other Systems: Reviewed and Negative - Past Medical History Pertinent Past Medical History: Yes Neurological History: No Pertinent History ENT History: Cataracts Cardiac History: Hypertension Respiratory History: No Pertinent History Endocrine Medical History: No Pertinent History Musculoskeletal History: Arthritis, Fractures, Osteoarthritis GI Medical History: GERD History: No Pertinent History Psycho-Social History: Anxiety Male Reproductive Disorders: No Pertinent History Other Medical History: Hx of fractured ribs and right hand. Gout - Past Surgical History Past Surgical History: Yes Neuro Surgical History: No Pertinent History Cardiac: No Pertinent History Respiratory: No Pertinent History Gastrointestinal: No Pertinent History Genitourinary: Other Musculoskeletal: Orthopedic Surgery Male Surgical History: Vasectomy Other Surgical History: vasectomy, right knee arthroscopy, Right and left great toes. - Social History Smoking Status: Never smoker How long have you smoked: 10-15 year Exposure to second hand smoke: No Drug Use: none Patient Lives Alone: No - Nursing Vital Signs Nursing Vital Signs: Initial Vital Signs Temperature 97.8 F 08/15/19 23:38 Pulse Rate 86 08/15/19 23:38 Respiratory Rate 16 08/15/19 23:38 Blood Pressure 161/96 08/15/19 23:38 O2 Sat by Pulse Oximetry 96 08/15/19 23:38 Pain Scale Pain Intensity 10 - Physical Exam General Appearance: mild distress, alert, anxiety Eyes, Ears, Nose, Throat Exam: normal ENT inspection, moist mucous membranes Neck Exam: normal inspection, non-tender, supple, full range of motion Cardiovascular/Respiratory Exam: chest non-tender Gastrointestinal/Abdominal Exam: non-tender Back Exam: normal inspection, normal range of motion, No CVA tenderness, No vertebral tenderness Hips Exam: bilateral: non-tender, normal inspection, normal range of motion Legs Exam: bilateral leg: non-tender, normal inspection, normal range of motion , no evidence of injury Knees Exam: bilateral knee: non-tender, normal inspection, normal range of motion, no evidence of injury Ankle Exam: bilateral ankle: non-tender, normal inspection, normal range of motion, no evidence of injury Foot Exam: left foot: bone tenderness, pain, soft tissue tenderness, swelling Neuro/Tendon Exam: normal sensation, normal motor functions, normal tendon functions Mental Status Exam: alert, oriented x 3, cooperative Skin Exam: other (mild swelling and redness of left first toe) SpO2 Interpretation: normal SpO2: 96 O2 Delivery: Room Air - Course Nursing assessment & vital signs reviewed: Yes - Progress Progress: unchanged Counseled pt/family regarding: diagnosis, need for follow-up - Departure Departure Disposition: Home Clinical Impression: Gout attack Condition: Stable Critical Care Time: No Referrals: JACINTO ABDUL MD [Primary Care Provider] - Additional Instructions: follow up with primary doctor and management sme tomorrow for further management Prescriptions: Oxycodone HCl/Acetaminophen [Percocet 5-325 mg Tablet] 1 each PO Q6H PRN PRN # 10 tablet MDD 4 PRN Reason: Pain Indomethacin 25 mg [Indocin 25 MG] 25 mg PO TID #18 capsule
[2019-08-16] MEDS ORDERED: solu-MEDROL 125 MG IM ONE (00:19)
[2019-08-16] MEDS ORDERED: OXYCODONE-ACETAMINOPHEN 10-325 PO STA (00:19)
[2019-08-16] MEDS ORDERED: OXYCODONE-ACETAMINOPHEN 10-325 ONE (00:21)
[2019-08-16] MEDS ORDERED: solu-MEDROL 125 MG ONE (00:21)
[2019-08-16 00:58] VITALS: BP 174/109
== END 2019-08-16 00:59 | disposition home or self-care (01) ==
LOC: ED 23:19
DX: M10.9 Gout, unspecified (principal); R26.2 Difficulty in walking, not elsewhere classified
CPT/HCPCS: 96372; 99283; J2930; A9270-GY

== ENCOUNTER 2022-10-13 09:15 | Emergency (ER) | payer MEDICARE ==
[2022-10-13] MEDS ORDERED: Hydromorphone 1 mg/ml Injection IV ONE (09:31)
[2022-10-13] MEDS ORDERED: Sodium Chloride 0.9% 1000 ML 1,000 ML IV STA (09:31)
[2022-10-13] MEDS ORDERED: Zofran 4 MG/2 ML VIAL IV ONE (09:50)
[2022-10-13] MEDS ORDERED: Zofran 4 MG/2 ML VIAL ONE (09:52)
[2022-10-13] MEDS ORDERED: Hydromorphone 1 mg/ml Injection ONE (09:52)
[2022-10-13] MEDS ORDERED: Sodium Chloride 0.9% 1000 ML 1,000 ML ONE (09:52)
[2022-10-13 09:55] LABS: Absolute Neutrophil Ct (ANC) 8.04 x10^3/uL (1.4-6.9); Basophil (Absolute #) 0.04 x10^3/uL (0-0.4); Eosinophil % 1.4 % (0.00-5.0); Eosinophil (Absolute #) 0.15 x10^3/uL (0-0.5); Hematocrit 46.4 % (42-50); Hemoglobin 15.6 g/dL (12.5-18.0); Lymphocyte (Absolute #) 1.59 x10^3/uL (1.0-4.6); Lymphocytes % 15.3 % (24.0-44.0); Mean Corpuscular Hemoglobin 33.6 pg (26-32); Mean Corpuscular Hgb Concent. 33.6 g/dL (32-36); Mean Platelet Volume 10.8 fL (7.5-11.0); Monocyte (Absolute #) 0.51 x10^3/uL (0.0-1.3); Monocytes % 4.9 % (0.0-12.0); Neutrophil % 77.6 % (36.0-66.0); Platelet Count 219 x10^3/uL (150-450); Red Blood Count 4.64 x10^6/uL (4.1-5.6); Red Cell Distribution Width 12.6 % (11.5-14.0); White Blood Count 10.4 x10^3/uL (4.0-10.5)
[2022-10-13 10:08] LABS: ALBUMIN 4.8 g/dL (3.5-5.0); ALKALINE PHOSPHATASE 62 U/L (38-126); AMYLASE 120 U/L (30-110); ANION GAP 13.3 MEQ/L (5-15); BLOOD UREA NITROGEN 29 mg/dL (9-20); CHLORIDE 104 mmol/L (98-107); Calcium 10.2 mg/dL (8.4-10.2); Carbon Dioxide 27 mmol/L (22-30); Creatinine 1 1.24 mg/dL (0.66-1.25); EST GLOMERULAR FILTRATION RATE > 60.0 ML/MIN; Glucose 162 mg/dL (74-106); LIPASE 212 U/L (23-300); Potassium 4.2 mmol/L (3.5-5.1); SGOT/AST 36 U/L (17-59); SGPT/ALT 40 U/L (0-50); SODIUM 140 mmol/L (137-145); Total Protein 8.3 g/dL (6.3-8.2)
[2022-10-13 10:29] VITALS: O2SAT 98
--- NOTE | 2022-10-13 10:56 | ERPHSYRPT ---
- History of Present Illness Time Seen by Provider: 10/13/22 10:54 Historian: patient Exam Limitations: no limitations Patient Subjective Stated Complaint: PT states "I woke up with this horrible pain in my left back that goes into my belly." Triage Nursing Assessment: Pt presented alert and oriented X 3, skin pwd. PT ambulates with an upright steady gait, able to speak in clear full sentences. pt moaning and unable to lay still. Physician History: PT states "I woke up with this horrible pain in my left back that goes into my belly." Patient is 72-year-old male with significant past medical history of hypertension started having a left-sided back pain radiating to the front started today morning. Patient also has a nausea and vomiting and complaining of some pain while urination. He denies any fever chills. Timing/Duration: today Activities at Onset: none Quality: cramping, throbbing Abdominal Pain Onset Location: flank (left flank) Pain Radiation: groin Severity of Pain-Max: severe Severity of Pain-Current: severe Modifying Factors: Improves With: nothing Associated Symptoms: denies symptoms Previous symptoms: no prior history Allergies/Adverse Reactions: minocycline HCl [From Minocin] Allergy (Mild, Verified 08/15/19 23:48) nausea, confusion, dizzyness Skin Cleanser Combination No.4 [From Minocin] Allergy (Mild, Verified 08/15/19 23:48) nausea, confusion, dizzyness rifampin Allergy (Verified 08/15/19 23:48) nausea, dizzyness, confused Home Medications: ALPRAZolam 1 MG [Xanax 1 mg] 1 mg PO HS PRN 05/04/13 [History] Allopurinol 300 mg [Zyloprim 300 mg] 400 mg PO DAILY 05/04/13 [History] Lisinopril 10 mg [Zestril 10 MG] 40 mg PO DAILY 05/04/13 [History] Ascorbic Acid [Vitamin C] 3,000 mg PO DAILY 12/28/18 [History] [place]-3/Dha/Epa/Fish Oil [Fish Oil 1,000 mg Softgel] 1 each PO DAILY 12/28/18 [History] Thiamine HCl [Vitamin B-1] 250 mg PO DAILY 12/28/18 [History] Cranberry Conc/Ascorbic Acid [Cranberry 6,000 mg Softgel] 1 each PO DAILY 01/25/19 [History] Hx Tetanus, Diphtheria Vaccination/Date Given: No Hx Influenza Vaccination/Date Given: No Hx Pneumococcal Vaccination/Date Given: No Immunizations Up to Date: Yes Travel Risk - International Travel Have you traveled outside of the country in past 3 weeks: No - Coronavirus Screening Are you exhibiting any of the following symptoms?: No Close contact with a COVID-19 positive Pt in past 14-21 Days: No - Vaccine Status Have you recieved a Covid-19 vaccination: No - Review of Systems Constitutional: No Fever, No Chills Eyes: No Symptoms Ears, Nose, & Throat: No Symptoms Respiratory: No Cough, No Dyspnea Cardiac: No Chest Pain, No Edema, No Syncope Abdominal/Gastrointestinal: Abdominal Pain, No Nausea, No Vomiting, No Diarrhea Genitourinary Symptoms: No Dysuria Musculoskeletal: No Back Pain, No Neck Pain Skin: No Rash Neurological: No Dizziness, No Focal Weakness, No Sensory Changes Psychological: No Symptoms Endocrine: No Symptoms All Other Systems: Reviewed and Negative - Past Medical History Pertinent Past Medical History: Yes Neurological History: No Pertinent History ENT History: Cataracts Cardiac History: No Pertinent History Respiratory History: No Pertinent History Endocrine Medical History: No Pertinent History Musculoskeletal History: Arthritis GI Medical History: GERD History: No Pertinent History Psycho-Social History: Anxiety Male Reproductive Disorders: No Pertinent History Other Medical History: HAS HAD 4 TOTAL SURGEIES (VASECTOMY, KNEE SURGERY, AND 2 FOOT SURGERIES) AND AFTER ALL 4 SURGERIES HE HAS DEVELOPED STAFF INFECTION. - Past Surgical History Past Surgical History: Yes Neuro Surgical History: No Pertinent History Cardiac: No Pertinent History Respiratory: No Pertinent History Gastrointestinal: No Pertinent History Genitourinary: Other Musculoskeletal: Orthopedic Surgery Male Surgical History: Vasectomy Other Surgical History: vasectomy, right knee arthroscopy, Right and left great toes. - Social History Smoking Status: Never smoker How long have you smoked: 10-15 year Exposure to second hand smoke: No Drug Use: none Patient Lives Alone: No - Nursing Vital Signs Nursing Vital Signs: Initial Vital Signs Temperature 97.2 F 10/13/22 09:23 Pulse Rate 58 L 10/13/22 09:23 Respiratory Rate 24 10/13/22 09:23 Blood Pressure 145/77 10/13/22 09:23 O2 Sat by Pulse Oximetry 100 10/13/22 09:23 Pain Scale Pain Intensity 4 - Physical Exam General Appearance: no apparent distress, alert Eye Exam: PERRL/EOMI, eyes nml inspection Ears, Nose, Throat Exam: normal ENT inspection, pharynx normal, moist mucous membranes Neck Exam: normal inspection, non-tender, supple, full range of motion Respiratory Exam: normal breath sounds, lungs clear, No respiratory distress Cardiovascular Exam: regular rate/rhythm, normal heart sounds Gastrointestinal/Abdomen Exam: soft, No tenderness, No mass Back Exam: normal inspection, normal range of motion, No CVA tenderness, No vertebral tenderness Extremity Exam: normal inspection, normal range of motion, pelvis stable Neurologic Exam: alert, oriented x 3, cooperative, normal mood/affect, nml cerebellar function, sensation nml, No motor deficits Skin Exam: normal color, warm, dry SpO2: 98 - Course Nursing assessment & vital signs reviewed: Yes EKG Interpreted by Me: Sinus Rhythm - CT Exams Abdomen/Pelvis CT Interpretation: Tele-radiologist Report (3 mm UVJ right side stone) Ordered Tests: Active Orders 24 hr Category Date Time Status EKG-ER Only STAT Care 10/13/22 09:31 Active IV Insertion STAT Care 10/13/22 09:31 Active ABDOMEN AND PELVIS W/0 CONTRAS [CT] Stat Exams 10/13/22 10:07 Taken AMYLASE Stat Lab 10/13/22 09:59 Completed CBC W DIFF Stat Lab 10/13/22 09:59 Completed CMP Stat Lab 10/13/22 09:59 Completed LIPASE Stat Lab 10/13/22 09:59 Completed UA W/RFX CULTURE Stat Lab 10/13/22 10:14 Completed Medication Summary Discontinued Medications Generic Name Dose Route Start Last Admin Trade Name Jensq PRN Reason Stop Dose Admin Hydromorphone HCl 1 mg 10/13/22 09:31 10/13/22 09:54 Hydromorphone 1 Mg/1ml Inj 1 Mg/Ml Syringe IV 10/13/22 09:32 1 mg STAT ONE Administration Hydromorphone HCl Confirm 10/13/22 09:52 Hydromorphone 1 Mg/1ml Inj 1 Mg/Ml Syringe Administered 10/13/22 09:53 Dose 1 mg .ROUTE .STK-MED ONE Sodium Chloride 1,000 mls @ 999 mls/hr 10/13/22 09:31 10/13/22 11:13 Sodium Chloride 0.9% 1000 Ml IV 10/13/22 10:31 Infused .Q1H1M STA Infusion Sodium Chloride Confirm 10/13/22 09:52 Sodium Chloride 0.9% 1000 Ml Administered 10/13/22 09:53 Dose 1,000 mls @ ud .ROUTE .STK-MED ONE Ketorolac Tromethamine 30 mg 10/13/22 11:02 Ketorolac Tromethamine 30 Mg/Ml Inj IV 10/13/22 11:03 STAT ONE Ondansetron HCl 4 mg 10/13/22 09:50 10/13/22 09:54 Ondansetron Hcl 4 Mg/2 Ml Vial IV 10/13/22 09:51 4 mg STAT ONE Administration Ondansetron HCl Confirm 10/13/22 09:52 Ondansetron Hcl 4 Mg/2 Ml Vial Administered 10/13/22 09:53 Dose 4 mg .ROUTE .STK-MED ONE Tamsulosin HCl 0.4 mg 10/13/22 11:15 Tamsulosin Hcl 0.4 Mg Cap PO 10/13/22 11:16 ONCE STA Tamsulosin HCl Confirm 10/13/22 11:14 Tamsulosin Hcl 0.4 Mg Cap Administered 10/13/22 11:15 Dose 0.4 mg .ROUTE .STK-MED ONE Lab/Rad Data: Laboratory Result Diagrams 10/13/22 09:59 10/13/22 09:59 Laboratory Results 10/13/22 10/13/22 10/13/22 Range/Units 10:14 09:59 09:59 WBC 10.4 (4.0-10.5) x10^3/uL RBC 4.64 (4.1-5.6) x10^6/uL Hgb 15.6 (12.5-18.0) g/dL Hct 46.4 (42-50) % MCV 100.0 (78-100) fL MCH 33.6 H (26-32) pg MCHC 33.6 (32-36) g/dL RDW 12.6 (11.5-14.0) % Plt Count 219 (150-450) x10^3/uL MPV 10.8 (7.5-11.0) fL Gran % 77.6 H (36.0-66.0) % Immature Gran % (Auto) 0.4 (0.00-0.4) % Nucleat RBC Rel Count 0.0 (0.00-0.1) % Eos # (Auto) 0.15 (0-0.5) x10^3/uL Immature Gran # (Auto) 0.04 H (0.00-0.03) x10^3u/L Absolute Lymphs (auto) 1.59 (1.0-4.6) x10^3/uL Absolute Monos (auto) 0.51 (0.0-1.3) x10^3/uL Absolute Nucleated RBC 0.00 (0.00-0.01) x10^3u/L Lymphocytes % 15.3 L (24.0-44.0) % Monocytes % 4.9 (0.0-12.0) % Eosinophils % 1.4 (0.00-5.0) % Basophils % 0.4 (0.0-0.4) % Absolute Granulocytes 8.04 H (1.4-6.9) x10^3/uL Basophils # 0.04 (0-0.4) x10^3/uL Sodium 140 (137-145) mmol/L Potassium 4.2 (3.5-5.1) mmol/L Chloride 104 (98-107) mmol/L Carbon Dioxide 27 (22-30) mmol/L Anion Gap 13.3 (5-15) MEQ/L BUN 29 H (9-20) mg/dL Creatinine 1.24 (0.66-1.25) mg/dL Estimated GFR > 60.0 ML/MIN Glucose 162 H (74-106) mg/dL Calcium 10.2 (8.4-10.2) mg/dL Total Bilirubin 0.40 (0.2-1.3) mg/dL AST 36 (17-59) U/L ALT 40 (0-50) U/L Alkaline Phosphatase 62 (38-126) U/L Serum Total Protein 8.3 H (6.3-8.2) g/dL Albumin 4.8 (3.5-5.0) g/dL Amylase 120 H (30-110) U/L Lipase 212 (23-300) U/L Urinalys Dipstick Clnc MAIN LAB Urine Color YELLOW (YELLOW) Urine Appearance CLEAR (CLEAR) Urine pH 6.0 (5-6) Ur Specific [place]inger 1.025 (1.005-1.025) POC Urine Protein Conf NEGATIVE (Negative) Urine Ketones NEGATIVE (NEGATIVE) Urine Nitrite NEGATIVE (NEGATIVE) Urine Bilirubin NEGATIVE (NEGATIVE) Urine Urobilinogen 0.2 (0-1) mg/dL Urine Leukocytes NEGATIVE (NEGATIVE) Urine WBC (Auto) NONE (0-5) /HPF Urine RBC (Auto) NONE (0-2) /HPF U Epithel Cells (Auto) NONE (FEW) /HPF Urine Bacteria (Auto) NONE (NEGATIVE) /HPF Urine RBC NEGATIVE (0-5) Roque/ul Urine Mucus (Auto) SLIGHT A (NEGATIVE) /HPF Ur Culture Indicated? NO Urine Glucose NEGATIVE (NEGATIVE) mg/dL - Progress Progress: improved, pain not gone completely Progress Note: 10/13/22 11:[address] abdomen and pelvis patient has a 3 mm ureterovesicular junction stone on the right side. I talked to Dr. Laswon urologist and he advised that most [facility] patient will pass that stone very soon. He advised patient to send home with Flomax and Toradol. Patient is advised to drink lots of water stay away from too much caffeine or Coke or Pepsi. Patient verbalized understanding. Discussed with Dr.: Other (Dr Gardiner at [facility]) Will see patient in: office - Departure Departure Disposition: Home Clinical Impression: Calculus of ureterovesical junction (UVJ), Kidney stone on right side Condition: Stable Critical Care Time: Yes Critical Care Time(excluding separately billable procedures): Critical 30-74 mins Referrals: ELISA COOPER MD [Primary Care Provider] - Follow up/PCP as directed HIMANSHU EVANS DO [NON-STAFF PHY W/O PRIVILEGES] - Follow up/PCP as directed Instructions: Kidney Stones (DC), Flank Pain Additional Instructions: You have a kidney stone on your right side which is almost going to pass into your bladder. We will send you a urine So that you can strain your urine. If you found a stone collect that in the bottle and bring it to the laboratory for further evaluation. We are sending you prescription for your pain to your pharmacy please take them as prescribed. You are advised to follow-up with your primary care physician for further management of her kidney stone. Discharge/Care Plan WARNER DRISCOLL SR was seen on 10/13/22 in the Emergency Room. The patient was counseled regarding Diagnosis,Lab results, Imaging studies, need for follow up and when to return to the Emergency Room. Prescriptions given: Discharge Note I have spoken with the patient and/or caregivers. I have explained the patient's condition, diagnosis and treatment plan based on the information available to me at this time. I have answered the patient's and/or caregiver's questions and addressed any concerns. The patient and/or caregivers have as good understanding of the patient's diagnosis, condition and treatment plan as can be expected at this point. The vital signs have been stable. The patient's condition is stable and appropriate for discharge from the emergency department. The patient will pursue further outpatient evaluation with the primary care physician or other designated or consulting physician as outlined in the discharge instructions. The patient and/or caregivers are agreeable to this plan of care and follow-up instructions have been explained in detail. The patient and/or caregivers have received these instruction. The patient/and or caregivers are aware that any significant change in condition or worsening of symptoms should prompt an immediate return to this or the closest emergency department or call 911. WARNER DRISCOLL SR was seen on 10/13/22 n the Emergency Room. At that time you were treated for an emergent condition, during your visit Laboratory, Radiology and/or other procedures may have been ordered. It is very important that you follow-up with your Primary Care Physician ELISA COOPER within the next 24-48 hours to review your Emergency Room visit and the final results of testing that was ordered. Some test results such as Urine Cultures, Blood Cultures, and other cultures if ordered will not be finalized for 24-48 hours. If you do not have a Primary Care Provider please call the medical records department at [phone] ext [phone] to obtain a copy of your results or you may sign into our patient portal to obtain these results by visiting us @ [email or web address] and completing the following steps: 1. Click on the Patient Portal link 2. Click the Patient Self Enrollment Link to complete the enrollment form and entering your 3. Once the enrollment form is completed you will receive an email with a temporary ID and password at the email address you provided. 4. Next choose a user name and password. Your user name must be at least 4 pily cters long and your password must be at least 4 characters long. 5. Choose a security question from the list and provide your answer to the question. If you already have signed into the Health Portal you may access your Health Care Information 26/05 by the following steps: 1. Login to our website @ [email or web address] 2. Enter your original user name and password. FAQS The [facility] Health Portal is an online tool that contains your Lab Results, Radiology Reports, Visit History, Discharge Instructions and Health Summary Lab and Radiology Results will not be available for 72 hours on the portal. The Portal is a secure site, passwords are encryted and URLs are re-written so they cannot be copied and pasted. You and authorized family members are the only ones who can access your Portal. Also there is a timeout feature that protects your information if you leave the Portal page open. If you have technical difficulty please use the Contact Us link on the page this will allow you to submit any questions you have regarding the Portal or you may contact the Medical Record Department at [phone]. Prescriptions: Smz/Tmp Ds Tablet [Bactrim Ds Tablet] 1 udtab PO BID #20 tablet Tamsulosin HCl 0.4 mg [Flomax 0.4 MG] 0.4 mg PO DAILY #30 cap Ketorolac Trometh 10 mg Tab [TORAdol 10 MG TABLET] 10 mg PO QID #20 tablet
[2022-10-13 11:00] LABS: Appearance CLEAR (CLEAR); Bilirubin NEGATIVE (NEGATIVE); Dipstick done @ ? MAIN LAB; Glucose NEGATIVE (NEGATIVE); Ketones NEGATIVE (NEGATIVE); Mucus SLIGHT /HPF (NEGATIVE); Nitrite NEGATIVE (NEGATIVE); Protein,Urine Dip NEGATIVE (Negative); RBC NEGATIVE Ery/ul (0-5); Specific Gravity 1.025 (1.005-1.025); Urobilinogen 0.2 mg/dL (0-1)
[2022-10-13 11:02] LABS: Urine Cultured Indicated? NO
[2022-10-13] MEDS ORDERED: TORAdol 30 mg Injection IV ONE (11:02)
[2022-10-13] MEDS ORDERED: Flomax 0.4 MG ONE (11:14)
[2022-10-13] MEDS ORDERED: Flomax 0.4 MG PO STA (11:15)
[2022-10-13] MEDS ORDERED: TORAdol 30 mg Injection ONE (11:17)
[2022-10-13 11:21] VITALS: BP 128/84; PULSE 71
--- NOTE | 2022-10-13 19:15 | XRAY ---
Indication: Right flank pain. Multiple contiguous axial images obtained through the abdomen and pelvis without contrast using renal stone protocol. Comparison: None Lung bases demonstrates a few right mid to lower lung calcified granulomas. No infiltrate or effusion. Heart not enlarged. Small hiatal hernia. Mild distal esophageal circumferential wall thickening concerning for reflux esophagitis. 3-4 mm right UVJ calculus. Proximal right ureter is slightly prominent along with mild hydronephrosis consistent with partial obstructive uropathy. Additional bilateral renal micro-calculi. A few bilateral renal cysts, largest on the right measuring 5.5 cm. Noncontrasted stomach and bowel loops appear nonobstructed. Normal appendix. Tiny splenic calcified granulomas. No free fluid/air. Remaining liver, gallbladder, pancreas, spleen, adrenal glands, kidneys, ureters, and bladder are unremarkable for noncontrast exam. Mild scattered aortoiliac calcifications without AAA. Osseous structures intact with osteopenia, mild levoscoliosis centered at L3-L4, mild/moderate degenerative changes throughout the thoracolumbar spine, and left L5 spondylolysis without listhesis. Impression: 1. 3-4 mm right UVJ calculus producing partial obstruction. Additional bilateral renal micro-calculi and bilateral renal cysts. 2. Small hiatal hernia with distal circumferential esophageal wall thickening. Rule out reflux esophagitis. 3. Chronic findings including arteriosclerotic disease, chronic bony findings, and old granulomatous disease. Comment: Preliminary interpretation made by [facility]. No critical discrepancy.
== END 2022-10-13 11:39 | disposition home or self-care (01) ==
LOC: ED 09:15
DX: N20.2 Calculus of kidney with calculus of ureter (principal); R10.9 Unspecified abdominal pain; M54.9 Dorsalgia, unspecified; R11.2 Nausea with vomiting, unspecified; R30.0 Dysuria; I10 Essential (primary) hypertension; Z79.899 Other long term (current) drug therapy; Z28.310 Unvaccinated for COVID-19
CPT/HCPCS: 36000; 36415; 74176; 80053; 81015; 82150; 83690; 85025; 93005; 96360; 96374; 96375; 99284; 99291; J1170; J1885; J2405; A9270-GY